=== PATIENT | female | born 1975 | race Asian ===

== ENCOUNTER 2018-09-28 07:36 | Emergency (ER) | payer BC ==
[2018-09-28] MEDS: SOD CHLORIDE 0.9% 1,000 ML IV (08:40)
[2018-09-28] MEDS: ONDANSETRON 4 MG INJ IV (08:40)
[2018-09-28] MEDS: FAMOTIDINE 20 MG INJ IV (08:40)
[2018-09-28] MEDS: LIDOCAINE/MYLANTA 40 ML BTL PO (08:40)
[2018-09-28] MEDS: BELLADONNA/PHENOBARBITAL TAB PO (08:42)
[2018-09-28 08:48] LABS: ADD MAN DIFF? NO
[2018-09-28 08:52] LABS: BASOPHIL # 0.1 10^3/ul (0.0-0.1); BASOPHILS % 0.6 % (0.0-2.0); EOSINOPHILS # 0.3 10^3/ul (0.0-0.5); EOSINOPHILS % 2.6 % (0.0-7.0); HEMATOCRIT 35.3 % (37.0-47.0); LYMPHOCYTES # 1.7 10^3/ul (0.8-2.9); LYMPHOCYTES % 14.7 % (15.0-51.0); MEAN CORPUSCULAR HEMOGLOBIN 31.3 pg (29.0-33.0); MEAN CORPUSCULAR VOLUME 91.9 fl (82.0-101.0); MEAN PLATELET VOLUME 10.5 fl (7.4-10.4); MONOCYTE # 0.9 10^3/ul (0.3-0.9); MONOCYTES % 7.4 % (0.0-11.0); NEUTROPHIL # 8.7 10^3/ul (1.6-7.5); NEUTROPHILS % 74.4 % (39.0-77.0); PLATELET COUNT 295 10^3/UL (140-415); RED BLOOD COUNT 3.84 10^6/ul (4.20-5.40); RED CELL DISTRIBUTION WIDTH 12.7 % (11.5-14.5)
[2018-09-28 08:52] LABS: WHITE BLOOD COUNT 11.7 10^3/ul (4.8-10.8)
[2018-09-28 09:09] LABS: ALANINE AMINOTRANSFERASE 23 IU/L (13-69); ALKALINE PHOSPHATASE 49 IU/L (42-121); AMYLASE 79 U/L (11-123); ANION GAP 9 (5-13); ASPARTATE AMINO TRANSFERASE 19 IU/L (15-46); BILIRUBIN,INDIRECT 0.2 mg/dl (0-1.1); BILIRUBIN,TOTAL 0.2 mg/dl (0.2-1.3); BLOOD UREA NITROGEN 8 mg/dl (7-20); CALCIUM 9.5 mg/dl (8.4-10.2); CARBON DIOXIDE 25 mmol/L (21-31); CHLORIDE 102 mmol/L (97-110); CREATININE 0.45 mg/dl (0.44-1.00); Estimated GFR > 60 mL/min (>60); GLUCOSE 102 mg/dl (70-220); LIPASE 66 U/L (23-300); POTASSIUM 3.5 mmol/L (3.5-5.1); SODIUM 136 mmol/L (135-144)
[2018-09-28 09:10] LABS: ALBUMIN 4.5 g/dl (3.3-4.9); ALBUMIN/GLOBULIN RATIO 1.45; TOTAL PROTEIN 7.6 g/dl (6.1-8.1)
[2018-09-28 09:12] LABS: ADD UMIC NO; UR ASCORBIC ACID 40 mg/dL (NEGATIVE); UR BACTERIA FEW /HPF (NONE SEEN); UR BILIRUBIN (Dip) NEGATIVE (NEGATIVE); UR BLOOD (Dip) NEGATIVE (NEGATIVE); UR CLARITY SLIGHTLY CLOUDY (CLEAR); UR COLOR YELLOW (YELLOW); UR GLUCOSE (Dip) NEGATIVE (NEGATIVE); UR KETONES (Dip) 2+ mg/dL (NEGATIVE); UR LEUKOCYTE ESTERASE (Dip) NEGATIVE Leu/ul (NEGATIVE); UR MUCUS FEW /HPF (NONE SEEN); UR NITRITE (Dip) NEGATIVE (NEGATIVE); UR RBC 3 /HPF (0-5); UR SQUAMOUS EPITHELIAL CELL FEW /HPF (FEW); UR TOTAL PROTEIN (Dip) NEGATIVE (NEGATIVE); UR UROBILINOGEN (Dip) NEGATIVE (NEGATIVE); UR WBC 3 /HPF (0-5)
== END 2018-09-28 10:56 | disposition home or self-care (01) ==
LOC: FTE 07:36
DX: O21.0 Mild hyperemesis gravidarum (principal); Z3A.01 Less than 8 weeks gestation of pregnancy
CPT/HCPCS: 76801; 80053; 81001; 81003; 81025; 82150; 83690; 84702; 84703; 85025; 86900; 86901; 87086; 96361; 96374; 96375; 99285-25

== ENCOUNTER 2018-10-06 07:41 | Emergency (ER) | payer BC ==
[2018-10-06 08:14] LABS: ADD MAN DIFF? NO
[2018-10-06 08:19] LABS: BASOPHIL # 0.1 10^3/ul (0.0-0.1); BASOPHILS % 0.5 % (0.0-2.0); EOSINOPHILS # 0.3 10^3/ul (0.0-0.5); EOSINOPHILS % 2.2 % (0.0-7.0); HEMATOCRIT 36.1 % (37.0-47.0); HEMOGLOBIN 12.2 g/dl (12.0-16.0); LYMPHOCYTES # 2.3 10^3/ul (0.8-2.9); LYMPHOCYTES % 17.8 % (15.0-51.0); MEAN CORPUSCULAR HEMOGLOBIN 31.2 pg (29.0-33.0); MEAN CORPUSCULAR HGB CONC 33.8 g/dl (32.0-37.0); MEAN CORPUSCULAR VOLUME 92.3 fl (82.0-101.0); MEAN PLATELET VOLUME 10.4 fl (7.4-10.4); MONOCYTE # 1.1 10^3/ul (0.3-0.9); MONOCYTES % 8.2 % (0.0-11.0); NEUTROPHIL # 9.3 10^3/ul (1.6-7.5); NEUTROPHILS % 70.8 % (39.0-77.0); PLATELET COUNT 337 10^3/UL (140-415); RED BLOOD COUNT 3.91 10^6/ul (4.20-5.40); RED CELL DISTRIBUTION WIDTH 12.6 % (11.5-14.5)
[2018-10-06 08:19] LABS: WHITE BLOOD COUNT 13.1 10^3/ul (4.8-10.8)
[2018-10-06 08:49] LABS: ADD UMIC YES; UR ASCORBIC ACID NEGATIVE (NEGATIVE); UR BACTERIA FEW /HPF (NONE SEEN); UR BILIRUBIN (Dip) NEGATIVE (NEGATIVE); UR BLOOD (Dip) 2+ mg/dL (NEGATIVE); UR CLARITY SLIGHTLY CLOUDY (CLEAR); UR COLOR YELLOW (YELLOW); UR GLUCOSE (Dip) NEGATIVE (NEGATIVE); UR KETONES (Dip) TRACE mg/dL (NEGATIVE); UR LEUKOCYTE ESTERASE (Dip) NEGATIVE Leu/ul (NEGATIVE); UR MUCUS FEW /HPF (NONE SEEN); UR NITRITE (Dip) NEGATIVE (NEGATIVE); UR RBC 3 /HPF (0-5); UR SPECIFIC GRAVITY (Dip) 1.011 (1.003-1.030); UR SQUAMOUS EPITHELIAL CELL FEW /HPF (FEW); UR TOTAL PROTEIN (Dip) NEGATIVE (NEGATIVE); UR UROBILINOGEN (Dip) NEGATIVE (NEGATIVE); UR WBC 2 /HPF (0-5)
== END 2018-10-06 10:43 | disposition home or self-care (01) ==
LOC: FTE 10:43 → E/R 07:41
DX: O20.9 Hemorrhage in early pregnancy, unspecified (principal); R10.2 Pelvic and perineal pain; Z3A.08 8 weeks gestation of pregnancy
CPT/HCPCS: 36415; 76801; 81001; 84702; 85025; 86900; 86901; 99284-25